=== PATIENT | female | born 1965 | race Caucasian/White ===

== ENCOUNTER 2024-11-15 07:31 | Day surgery (SDC) | payer OTHER, SELFPAY ==
[2024-11-15 07:45] VITALS: BMI 38.9
[2024-11-15 08:00] VITALS: BP 123/76; PULSE 59; RESP 16; TEMP 36.6; O2SAT 96
[2024-11-15] MEDS: SODIUM CHLORIDE 0.9 % (FLUSH) 10 ML SYRINGE IVF (08:15)
[2024-11-15] MEDS: LACTATED RINGERS 1000 ML 1,000 ML 100 ML IV (08:15)
--- NOTE | 2024-11-15 08:37 | W.PM.H&PU ---
History & Physical Update History & Physical Update H&P Reviewed and patient assessed: No changes noted
[2024-11-15] MEDS: BUPIVACAINE 0.25% 30 ML INJECTION (09:17)
[2024-11-15] MEDS: LIDOCAINE 1% MDV 20 ML INJECTION (09:17)
[2024-11-15 09:51] VITALS: BP 106/65; PULSE 70; RESP 16; TEMP 36.8; O2SAT 93
--- NOTE | 2024-11-15 09:55 | P.ANES_ITS ---
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
--- NOTE | 2024-11-15 09:55 | W.ANESCHARGE ---
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
[2024-11-15 10:00] VITALS: BP 97/64; PULSE 71; RESP 16; O2SAT 94
--- NOTE | 2024-11-15 10:00 | P.GSOP_ITS ---
Operative Note Date of procedure: 11/15/24 Pre-op diagnosis: 1. Right upper arm lipoma, 5.5 cm 2. Upper back sebaceous cyst less than 1 cm 3. Posterior neck sebaceous cyst less than 1 cm Post-op diagnosis: Same Type of Procedure: 1. Excision of right upper arm lipoma 2. Excision of upper back sebaceous cyst 3. Excision of posterior neck sebaceous cyst Indications: Patient is a 59-year-old female who was seen in clinic for multiple symptomatic masses on her body. Due to the size and multiple locations were recommendations were to proceed with removal in the operating room. Risks and benefits of operative intervention were discussed at length with the patient. Risks included but was not limited to: Bleeding, infection, risk of damage to surrounding structures, possible need for additional procedures, risk of recurrence and postoperative complications such as pneumonia, pulmonary emboli or LA. All questions and concerns were addressed with the patient agreeing to proceed. Procedure Description: After discussing the risks and benefits of the procedure, the patient signed in formed consent.? The operative site was marked and the patient was brought to the operating room and placed on the operating table lateral position, right side up.? Care was taken to pad the patient's pressure points.?? The patient was then given sedation by anesthesia.?? All operative sites were then prepped and draped in the usual sterile fashion.? A time-out was then performed. Attention was 1st directed to the patient's right upper arm. A mixture of 1% lidocaine and quarter % Marcaine was used to anesthetize the area. A mobile subcutaneous mass was easily palpated. A 4 cm vertical incision was made directly over the mass with a 15 blade scalpel. Dissection was carried down into subcutaneous fat with cautery. A well encapsulated area of mature fat was encountered, consistent with lipoma. This was circumferentially dissected free with a mosquito and cautery. The mass was removed in its entirety and measured 5.5 x 5.4 x 2 cm in size. It was passed off the table to be sent for pathology. Hemostasis was assured with cautery. The wound was irrigated. The incision was then closed in layers with interrupted 3-0 Vicryl and running 4-0 Monocryl and Steri-Strips were applied over top. A dilated pore and underlying subcutaneous mass was visualized on the patient's upper back. A mixture of 1% lidocaine and 0.25% Marcaine was used to anesthetize the area. An elliptical incision was made horizontally around the dilated pore. Dissection was continued through subcutaneous tissue with cautery. The underlying cyst was removed in its entirety. The specimen was passed off for pathology. Hemostasis was assured with cautery. The cyst itself was less than 1 cm. The incision length was 3 cm in size. Hemostasis was assured with cautery. The wound was irrigated. The incision was then closed in layers with interrupted 3-0 Vicryl and running 4-0 Monocryl. Steri-Strips were applied over top. A small mass was identified by the patient on the posterior neck. This was palpated and consistent with a previously inflamed cyst, no evidence of current inflammation. Some chronic scar tissue was there. The area was anesthetized with 1% lidocaine and 0.25% Marcaine. An elliptical incision was made around the outlined area horizontally. Dissection was carried down sharply through subcutaneous tissue. The underlying cyst and surrounding thick scar tissue was removed in its entirety the cyst measured approximately 5 mm. The incision length was 1.5 cm. Hemostasis was assured with cautery. The wound was irrigated. The incision was then closed in layers with interrupted 3-0 Vicryl and running 4-0 Monocryl. Steri-Strips were applied over top. The patient was then woken and transported to the recovery area in stable condition. ? The patient tolerated the procedure well. Findings: Right upper arm lipoma, sebaceous cyst of the upper back and posterior neck Anesthesia: MAC and local Surgeon: Aparna Spears MD Additional Specimen Information: 1. Right upper arm lipoma 2. Upper back mass 3. Posterior neck mass Condition: stable Disposition: same day
[2024-11-15 10:15] VITALS: BP 92/63; PULSE 59; RESP 16; O2SAT 94
[2024-11-15] MEDS: ACETAMINOPHEN 325 MG TABLET 650 MG PO (10:15)
[2024-11-15 10:42] VITALS: BP 116/69; PULSE 62; RESP 16; O2SAT 94
--- NOTE | 2024-11-15 11:11 | SUR.PHASEII ---
Patient and daughter verbalized readiness to be discharged and verbal understanding of discharge instructions/who to call if they have questions.
== END 2024-11-15 10:56 | disposition home or self-care (01) ==
PROVIDERS: PCP Family Medicine; Visit Provider Surgery
PROC: (CPT 24071; principal; 2024-11-15 08:45)
DX: D17.21 Benign lipomatous neoplasm of skin and subcutaneous tissue of right arm (principal); L72.3 Sebaceous cyst; E11.21 Type 2 diabetes mellitus with diabetic nephropathy; Z79.84 Long term (current) use of oral hypoglycemic drugs
CPT/HCPCS: 24071; 11401; 11420; 12032; 12041; 00300; 82962; J2003; A9270; J0665; J0690; J1100; J2405; J2704; J3010; J7120